=== PATIENT | female | born 1995 | race American Indian/Alaskan Native ===

== ENCOUNTER 2021-11-10 18:51 | Emergency (ER) | payer SELFPAY ==
[2021-11-10] MEDS ORDERED: Acetaminophen/HYDROcodone 325-5 MG Tab PO ONE (18:52)
[2021-11-10] MEDS ORDERED: Acetaminophen/HYDROcodone 325-10 MG Tab PO ONE (20:18)
[2021-11-10] MEDS ORDERED: Acetaminophen/HYDROcodone 325-5 MG Tab ONE (20:23)
== END 2021-11-10 20:36 | disposition home or self-care (01) ==
LOC: DL.ED 18:51
DX: S92.354A Nondisplaced fracture of fifth metatarsal bone, right foot, initial encounter for closed fracture (principal); F17.210 Nicotine dependence, cigarettes, uncomplicated; W45.8XXA Other foreign body or object entering through skin, initial encounter
CPT/HCPCS: 73620; 99282; 99283; A9270